=== PATIENT | female | born 1985 | race Caucasian/White ===

== ENCOUNTER 2021-05-11 16:09 | Emergency (ER) | payer SELFPAY ==
[~2021-05-11] VITALS: Ht 160.5 cm; Wt 111.3 kg
--- NOTE | 2021-05-11 16:23 | NUR ---
PT AMB TO BED 2.
[2021-05-11] MEDS ORDERED: CYCLOBENZAPRINE 10 MG TAB PO ONE (16:40)
[2021-05-11] MEDS ORDERED: KETOROLAC 30 MG/ML VIAL IM ONE (16:40)
--- NOTE | 2021-05-11 16:41 | NUR ---
JORDI Yancey is evaluating pt at bedside
[2021-05-11] MEDS ORDERED: LIDOCAINE 5% 1 EA PATCH TP ONE (16:45)
--- NOTE | 2021-05-11 16:45 | NUR ---
35 y/o F BIB self frmo home c/o neck pain chronic to self with bilateral temporal headache. Pt reports 10/10 pain, dull/constant, non-radiating pain. Denies fever, chills, sore throat, blurry vision, numbness/tingling, back/arm pain. States Ibuprofen prior to arrival without relief. Bed locked in lowest position, side rails x 1. PMH/Sx/Meds: Denies NKDA
--- NOTE | 2021-05-11 16:46 | NUR ---
Transported to [facility] by wheelchair
--- NOTE | 2021-05-11 16:55 | NUR ---
Pt returned from RAD by wheelchair.
--- NOTE | 2021-05-11 17:30 | NUR ---
+ relief to pain 2/10 at this time. All pt needs met. Lidocaine patch remains in place
[2021-05-11] MEDS ORDERED: LID5T TP (17:35)
[2021-05-11] MEDS ORDERED: CYCL-711 PO (17:35)
[2021-05-11] MEDS ORDERED: DICL100G5 TP (17:35)
[2021-05-11] MEDS ORDERED: IBUP-2213 PO (17:35)
--- NOTE | 2021-05-11 18:05 | NUR ---
Patient discharged with v/s stable. Written and verbal after care instructions given and explained. Patient alert, oriented and verbalized understanding of instructions. Ambulatory with steady gait. All questions addressed prior to discharge. ID band removed. Patient advised to follow up with PMD. Rx of Flexeril, Diclofenac Sodium, Ibuprofen, Lidoderm 5% patch given. Patient educated on indication of medication including possible reaction and side effects. Opportunity to ask questions provided and answered.
[2021-05-12] MEDS ORDERED: LIDOCAINE 5% 1 EA PATCH TP SCH (09:00)
== END 2021-05-11 18:05 | disposition home or self-care (01) ==
LOC: MED 16:09
DX: S46.819A Strain of other muscles, fascia and tendons at shoulder and upper arm level, unspecified arm, initial encounter (principal); M54.2 Cervicalgia; G44.209 Tension-type headache, unspecified, not intractable; E11.9 Type 2 diabetes mellitus without complications; Z79.1 Long term (current) use of non-steroidal anti-inflammatories (NSAID); Z79.899 Other long term (current) drug therapy; X58.XXXA Exposure to other specified factors, initial encounter; Y92.89 Other specified places as the place of occurrence of the external cause; Y93.89 Activity, other specified; Y99.8 Other external cause status
CPT/HCPCS: 72050; 81025; 96372; 99283; J1885

== ENCOUNTER 2021-05-12 18:47 | Emergency (ER) | payer SELFPAY ==
[~2021-05-12] VITALS: Ht 165.1 cm; Wt 151.5 kg
[~2021-05-12 18:47] MED LIST: CYCL-711 PO; DICL100G5 TP; IBUP-2213 PO; LID5T TP
[2021-05-12 19:00] VITALS: BP 200/102
--- NOTE | 2021-05-12 19:06 | NUR ---
PT AMBULATED TO BED STEADY GAIT
[2021-05-12] MEDS ORDERED: hydrOXYzine PAMOATE 25 MG CAP PO STA (19:43)
[2021-05-12] MEDS ORDERED: CYCLOBENZAPRINE 10 MG TAB PO ONE (19:45)
[2021-05-12 19:58] LABS: BASOPHILS # (AUTO) 0.1 K/uL (0.00-0.22); BASOPHILS % (AUTO) 0.7 % (0.0-2.0); EOSINOPHILS # (AUTO) 0.1 K/uL (0-0.4); EOSINOPHILS % (AUTO) 1.9 % (0.0-4.0); HEMATOCRIT 40.3 % (36-48); HEMOGLOBIN 13.9 g/dL (12.0-16.0); LYMPHOCYTES # (AUTO) 1.6 K/uL (2.5-16.5); LYMPHOCYTES % (AUTO) 23.4 % (20.5-51.1); MEAN CORPUSCULAR HEMOGLOBIN 32 pg (27-31); MEAN CORPUSCULAR HGB CONC 34 g/dL (33-37); MEAN CORPUSCULAR VOLUME 92.3 fL (80-94); MONOCYTES # (AUTO) 0.6 K/uL (0.8-1.0); MONOCYTES % (AUTO) 8.1 % (1.7-9.3); NEUTROPHILS # (AUTO) 4.6 K/uL (1.8-7.7); NEUTROPHILS % (AUTO) 65.9 % (42.2-75.2); PLATELET COUNT (AUTO) 111 K/uL (140-450); RED BLOOD CELL COUNT(AUTO) 4.37 MIL/uL (4.20-5.40); RED CELL DISTRIBUTION WIDTH 13.3 % (11.6-13.7); WHITE BLOOD COUNT (AUTO) 6.9 K/uL (4.8-10.8)
[2021-05-12 20:18] LABS: ALBUMIN 3.6 g/dL (3.4-5.0); ANION GAP 12.8 (8-16); CARBON DIOXIDE 27.6 mmol/L (21-32); CREATININE 0.6 mg/dL (0.6-1.3); POTASSIUM 3.4 mmol/L (3.5-5.1); TOTAL BILIRUBIN 1.2 mg/dL (0.0-1.0)
[2021-05-12 21:22] VITALS: BP 144/61
--- NOTE | 2021-05-12 21:22 | NUR ---
cleared for DC with Dr. Boone, Vs stable on DC. DC instructions reinforced, exited Ed with steady gait and stable VS.
== END 2021-05-12 21:20 | disposition home or self-care (01) ==
LOC: MED 18:47
DX: R07.9 Chest pain, unspecified (principal); I10 Essential (primary) hypertension; E11.9 Type 2 diabetes mellitus without complications; Z79.899 Other long term (current) drug therapy
CPT/HCPCS: 36415; 71045; 80053; 81025; 84484; 85025; 93005; 99285; Q0092; Q0177

== ENCOUNTER 2023-03-23 18:08 | Emergency (ER) | payer MEDICAID ==
[~2023-03-23] VITALS: Ht 160 cm; Wt 104.3 kg
[~2023-03-23 18:08] MED LIST changes: +DICL100G32 TP; -DICL100G5 TP
[2023-03-23 18:44] VITALS: BP 188/99; PULSE 96; RESP 20; TEMP 97.2; O2SAT 96
[2023-03-23] MEDS ORDERED: CYCLOBENZAPRINE 10 MG TAB PO ONE (20:20)
[2023-03-23] MEDS ORDERED: LIDOCAINE/PRILOCAINE 2.5% 5 GM TUBE TP ONE (20:20)
[2023-03-23] MEDS ORDERED: ACETAMINOPHEN 325 MG TAB PO ONE (20:20)
[2023-03-23] MEDS ORDERED: ACET-11169 PO (21:56)
== END 2023-03-23 22:14 | disposition home or self-care (01) ==
LOC: MED 18:08
DX: M54.2 Cervicalgia (principal); G44.209 Tension-type headache, unspecified, not intractable; J45.909 Unspecified asthma, uncomplicated; Z79.899 Other long term (current) drug therapy; Z79.1 Long term (current) use of non-steroidal anti-inflammatories (NSAID)
CPT/HCPCS: 99284

== ENCOUNTER 2023-04-17 09:23 | Emergency (ER) | payer MEDICAID ==
[~2023-04-17] VITALS: Ht 160 cm; Wt 90.7 kg
[~2023-04-17 09:23] MED LIST changes: +ACET-11169 PO
[2023-04-17 09:40] VITALS: BP 159/102; PULSE 73; RESP 18; TEMP 98.1; O2SAT 98
[2023-04-17 10:19] LABS: BASOPHILS % (AUTO) 0.9 % (0.0-2.0); EOSINOPHILS # (AUTO) 0.1 K/uL (0-0.4); EOSINOPHILS % (AUTO) 2.3 % (0.0-4.0); HEMATOCRIT 39.6 % (36-48); HEMOGLOBIN 13.1 g/dL (12.0-16.0); LYMPHOCYTES # (AUTO) 0.9 K/uL (2.5-16.5); LYMPHOCYTES % (AUTO) 19.4 % (20.5-51.1); MEAN CORPUSCULAR HEMOGLOBIN 28 pg (27-31); MEAN CORPUSCULAR HGB CONC 33 g/dL (33-37); MEAN CORPUSCULAR VOLUME 85.7 fL (80-94); MONOCYTES # (AUTO) 0.3 K/uL (0.8-1.0); MONOCYTES % (AUTO) 6.6 % (1.7-9.3); NEUTROPHILS # (AUTO) 3.5 K/uL (1.8-7.7); NEUTROPHILS % (AUTO) 70.8 % (42.2-75.2); PLATELET COUNT (AUTO) 101 K/uL (140-450); RED BLOOD CELL COUNT(AUTO) 4.63 MIL/uL (4.20-5.40); RED CELL DISTRIBUTION WIDTH 18.6 % (11.6-13.7); WHITE BLOOD COUNT (AUTO) 4.9 K/uL (4.8-10.8)
[2023-04-17 10:26] LABS: ANION GAP 11.1 (8-16); CARBON DIOXIDE 28.7 mmol/L (21-32); CREATININE 0.6 mg/dL (0.6-1.3); POTASSIUM 3.8 mmol/L (3.5-5.1)
[2023-04-17 10:54] VITALS: BP 132/86; PULSE 72; RESP 16; TEMP 98; O2SAT 99
== END 2023-04-17 10:56 | disposition home or self-care (01) ==
LOC: MED 09:23
DX: R07.9 Chest pain, unspecified (principal); E11.9 Type 2 diabetes mellitus without complications; Z79.4 Long term (current) use of insulin; Z79.899 Other long term (current) drug therapy
CPT/HCPCS: 36415; 71045; 80048; 81025; 82948; 84484; 85025; 93005; 99285

== ENCOUNTER 2023-09-01 15:35 | Emergency (ER) | payer MEDICAID, OTHER ==
[~2023-09-01] VITALS: Ht 162.6 cm; Wt 95.3 kg
[2023-09-01 15:37] VITALS: BP 182/101; PULSE 86; RESP 18; TEMP 97.1; O2SAT 98
[2023-09-01] MEDS: ACETAMINOPHEN EXTRA STRENGTH 500 MG TAB PO ONE (16:24)
[2023-09-01] MEDS: NACL 0.9% 2,000 ML IV ONE (16:25)
[2023-09-01 16:28] LABS: BASOPHILS # (AUTO) 0.1 K/uL (0.00-0.22); BASOPHILS % (AUTO) 1.3 % (0.0-2.0); EOSINOPHILS % (AUTO) 0.7 % (0.0-4.0); HEMOGLOBIN 10.5 g/dL (12.0-16.0); LYMPHOCYTES # (AUTO) 0.9 K/uL (2.5-16.5); LYMPHOCYTES % (AUTO) 16.6 % (20.5-51.1); MEAN CORPUSCULAR HEMOGLOBIN 23 pg (27-31); MEAN CORPUSCULAR HGB CONC 31 g/dL (33-37); MEAN CORPUSCULAR VOLUME 75.3 fL (80-94); MONOCYTES # (AUTO) 0.4 K/uL (0.8-1.0); MONOCYTES % (AUTO) 7.3 % (1.7-9.3); NEUTROPHILS # (AUTO) 4.2 K/uL (1.8-7.7); NEUTROPHILS % (AUTO) 74.1 % (42.2-75.2); PLATELET COUNT (AUTO) 120 K/uL (140-450); RED BLOOD CELL COUNT(AUTO) 4.51 MIL/uL (4.20-5.40); RED CELL DISTRIBUTION WIDTH 21.7 % (11.6-13.7); WHITE BLOOD COUNT (AUTO) 5.7 K/uL (4.8-10.8)
[2023-09-01 16:42] LABS: ANION GAP 14.3 (8-16); CALCIUM 8.5 mg/dL (8.5-10.1); CARBON DIOXIDE 27.3 mmol/L (21-32); CREATININE 0.6 mg/dL (0.6-1.3); POTASSIUM 3.6 mmol/L (3.5-5.1)
[2023-09-01] MEDS: KETOROLAC 30 MG/ML VIAL IVP ONE (17:17)
[2023-09-01 18:57] VITALS: BP 157/79; PULSE 80; RESP 19; O2SAT 98
== END 2023-09-01 20:40 | disposition home or self-care (01) ==
LOC: MED 15:35
DX: R07.9 Chest pain, unspecified (principal); E11.9 Type 2 diabetes mellitus without complications; I10 Essential (primary) hypertension; Z79.4 Long term (current) use of insulin; Z79.899 Other long term (current) drug therapy
CPT/HCPCS: 36415; 71045; 80048; 81002; 81025; 82948; 84484; 85025; 93005; 96361; 96374; 99285; J1885; J7030